=== PATIENT | female | born 1945 | race Caucasian/White ===

== ENCOUNTER 2016-09-17 16:45 | Observation (INO) | payer OTHER ==
[~2016-09-17] VITALS: Ht 165.1 cm; Wt 75.0 kg
[~2016-09-17 16:45] MED LIST: ALBUS PO; AMLO10 PO; ATOR20TA PO; BUPR-197 PO; IBUP-232 PO; LEVA500T PO; LEVO100T4 PO; LORA10TA PO; METO100T PO; MUCI600T PO; OMEP20TA PO; PRIN20TA2 PO; TRAZ50TA4 PO; ZITH500T PO
[2016-09-17 16:51] VITALS: BP 157/95; PULSE 85; RESP 16; TEMP 98.9; O2SAT 96
[2016-09-17] MEDS ORDERED: MORPHINE SULFATE 8 MG/ML INJ IV PUSH ONE ×2 (17:15→19:45)
[2016-09-17] MEDS ORDERED: ONDANSETRON HCL 4 MG/2 ML VIAL IV PUSH ONE (17:15)
--- NOTE | 2016-09-17 17:15 | PD ---
HPI Chief Complaint: GI Complaint Time Seen by Provider: 16:56 Travel History International Travel<30 days: No Contact w/Intl Traveler<30days: No Traveled to known affect area: No History of Present Illness HPI This 71-year-old female states that she been having abdominal pain and flank pain. I it has been going on since Friday. It was quite bad on Friday and then seemed better yesterday in the morning but then was worse in the afternoon. SHe thinks he has been having fever. She did not measure it. Her only past surgery was a she has a history of hypertension and is on medication she also has high cholesterol. She says the pulsating type of pain somewhat diffuse. She has had not had an appetite. She has been urinating frequently PFSH Past Medical History Asthma: Yes Heart Rhythm Problems: No Cancer: Yes (SKIN) Cardiac Catheterization: No Cardiovascular Problems: No High Cholesterol: Yes Congestive Heart Failure: No Diabetes: No Diminished Hearing: No GERD: Yes Hypertension: Yes Myocardial Infarction: No Thyroid Disease: Yes PNEUMOCCOCAL Vaccine (Year): 2 ?: Not Menopausal: Yes Dilation and Curettage (D&C): Yes (mole) Tubal Ligation: Yes Past Surgical History Section: Yes (X 2 ) Coronary Artery Bypass Graft: No Social History Alcohol Use: Yes (SOCIAL) Tobacco Use: Yes (1 PPD) Substance Use: No Allergies-Medications (Allergen,Severity, Reaction): Coded Allergies: Codeine (Verified Allergy, Mild, 09/17/16) Reported Meds & Prescriptions Reported Meds & Active Scripts Active Reported Levothyroxine (Levothyroxine Sodium) 100 Mcg Tab 100 Mcg PO DAILY Lisinopril 20 Mg Tab 20 Mg PO HS Trazodone (Trazodone HCl) 50 Mg Tab 50 Mg PO HS PRN Metoprolol Tartrate 100 Mg Tab 100 Mg PO BID Wellbutrin Xl 24 HR (Bupropion HCl) 150 Mg Tab 150 Mg PO HS Amlodipine (Amlodipine Besylate) 5 Mg Tab 5 Mg PO HS Omeprazole 20 Mg Tab 20 Mg PO HS Atorvastatin (Atorvastatin Calcium) 20 Mg Tab 20 Mg PO HS Review of Systems General / Constitutional: Positive: Fever Eyes: No: Diploplia, Blurred Vision HENT: No: Headaches Cardiovascular: No: Chest Pain or Discomfort, Palpitations Respiratory: No: Cough Gastrointestinal: Positive: Nausea, Abdominal Pain Genitourinary: Positive: Frequency, Flank Pain Musculoskeletal: No: Myalgias, Arthralgias Skin: No Rash Physical Exam Narrative GENERAL: Well-developed female SKIN: Warm and dry. HEAD: Atraumatic. Normocephalic. EYES: Pupils equal and round. No scleral icterus. No injection or drainage. ENT: No nasal bleeding or discharge. Mucous membranes pink and moist. NECK: Trachea midline. No JVD. CARDIOVASCULAR: Regular rate and rhythm. No murmur appreciated. RESPIRATORY: No accessory muscle use. Clear to auscultation. Breath sounds equal bilaterally. GASTROINTESTINAL: Abdomen soft, non-tender, nondistended. Hepatic and splenic margins not palpable. MUSCULOSKELETAL: No obvious deformities. No clubbing. No cyanosis. No edema. NEUROLOGICAL: Awake and alert. No obvious cranial nerve deficits. Motor grossly within normal limits. Normal speech. PSYCHIATRIC: Appropriate mood and affect; insight and judgment normal. Data Data Last Documented VS Vital Signs Date Time Temp Pulse Resp B/P Pulse Ox O2 Delivery O2 Flow Rate FiO2 09/17/16 19:53 98.6 67 16 166/79 95 Room Air Orders Morphine Inj (Morphine Inj) (09/17/16 17:15) Complete Blood Count With Diff (09/17/16 17:11) Comprehensive Metabolic Panel (09/17/16 17:11) Lipase (09/17/16 17:11) Urinalysis - C+S If Indicated (09/17/16 17:11) Ct Abd/Pel W Iv Contrast(Rout) (09/17/16 17:11) Sodium Chlor 0.9% 1000 Ml Inj (Ns 1000 M (09/17/16 17:15) Ondansetron Inj (Zofran Inj) (09/17/16 17:15) Iohexol 350 Inj (Omnipaque 350 Inj) (09/17/16 19:06) Morphine Inj (Morphine Inj) (09/17/16 19:45) Admit Order (Ed Use Only) (09/17/16 20:00) Chest, Single Ap (09/17/16 ) Lactic Acid (09/17/16 19:59) ^ Other Nursing Orders (09/17/16 19:59) Creatine Kinase (Cpk) (09/17/16 19:59) Creatine Kinase (Cpk) (09/18/16 01:59) Creatine Kinase (Cpk) (09/18/16 07:59) Troponin I (09/17/16 19:59) Troponin I (09/18/16 01:59) Troponin I (09/18/16 07:59) Electrocardiogram (09/17/16 20:05) Electrocardiogram (09/18/16 02:05) Electrocardiogram (09/18/16 08:05) Labs Laboratory Tests Test 09/17/16 17:26 White Blood Count 12.4 TH/MM3 Red Blood Count 4.15 MIL/MM3 Hemoglobin 13.5 GM/DL Hematocrit 40.2 % Mean Corpuscular Volume 96.7 FL Mean Corpuscular Hemoglobin 32.5 PG Mean Corpuscular Hemoglobin 33.7 % Concent Red Cell Distribution Width 12.7 % Platelet Count 244 TH/MM3 Mean Platelet Volume 9.2 FL Neutrophils (%) (Auto) 72.6 % Lymphocytes (%) (Auto) 17.3 % Monocytes (%) (Auto) 8.2 % Eosinophils (%) (Auto) 1.3 % Basophils (%) (Auto) 0.6 % Neutrophils # (Auto) 9.0 TH/MM3 Lymphocytes # (Auto) 2.1 TH/MM3 Monocytes # (Auto) 1.0 TH/MM3 Eosinophils # (Auto) 0.2 TH/MM3 Basophils # (Auto) 0.1 TH/MM3 CBC Comment DIFF FINAL Differential Comment Urine Color STRAW Urine Turbidity CLEAR Urine pH 6.0 Urine Specific [place] 1.008 Urine Protein NEG mg/dL Urine Glucose (UA) NEG mg/dL Urine Ketones NEG mg/dL Urine Occult Blood TRACE Urine Nitrite NEG Urine Bilirubin NEG Urine Leukocyte Esterase NEG Urine RBC 0-3 /hpf Urine WBC 0-2 /hpf Urine Squamous Epithelial 0-5 /hpf Cells Urine Calcium Oxalate Crystals RARE /hpf Microscopic Urinalysis Comment CULT NOT INDICATED Sodium Level 140 MEQ/L Potassium Level 3.4 MEQ/L Chloride Level 105 MEQ/L Carbon Dioxide Level 27.5 MEQ/L Anion Gap 8 MEQ/L Blood Urea Nitrogen 13 MG/DL Creatinine 0.94 MG/DL Estimat Glomerular Filtration 59 ML/MIN Rate Random Glucose 90 MG/DL Calcium Level 9.1 MG/DL Total Bilirubin 0.5 MG/DL Aspartate Amino Transf 14 U/L (AST/SGOT) Alanine Aminotransferase 22 U/L (ALT/SGPT) Alkaline Phosphatase 117 U/L Total Protein 7.9 GM/DL Albumin 3.5 GM/DL Lipase 95 U/L MDM Medical Decision Making Medical Screen Exam Complete: Yes Emergency Medical Condition: Yes Medical Record Reviewed: Yes Differential Diagnosis Differential includes gastroenteritis, diverticulitis, UTI Narrative Course Patient was given IV fluids and initial dose of [address] scan with contrast shows no acute abnormality. Small hepatic and right renal cysts. Her white count is elevated at 12.4. Patient to get an initial relief from the medication but on reevaluation at 7:30 she reports that the pain is recurring. It is fairly diffuse across the abdomen. Repeat examination of the abdomen shows it to be soft without guarding. Patient is having ongoing pain. CT scan has not revealed an etiology of the pain. She'll be admitted for further evaluation Diagnosis Primary Impression: Abdominal pain Admitting Information Admitting Physician Requests: Observation Micah Martinez MD Sep 17, 2016 17:15
[2016-09-17] MEDS ORDERED: OMEP20TA PO ×2 (17:23→17:26)
[2016-09-17] MEDS ORDERED: ATOR20TA15 PO (17:23)
[2016-09-17] MEDS ORDERED: BUPR150XL PO (17:26)
[2016-09-17] MEDS ORDERED: LISI-515 PO (17:26)
[2016-09-17] MEDS ORDERED: AMLO5TAB2 PO (17:26)
[2016-09-17] MEDS ORDERED: METO100T PO (17:26)
[2016-09-17] MEDS ORDERED: LEVO100T5 PO (17:26)
[2016-09-17] MEDS ORDERED: TRAZ50TA12 PO (17:26)
[2016-09-17 17:34] LABS: BLOOD, URINE TRACE (NEG); GLUCOSE,URINE NEG (NEG); KETONE, URINE NEG (NEG); NITRITE,URINE NEG (NEG)
[2016-09-17] MEDS: SODIUM CHLOR 0.9% 1000 ML INJ 1,000 ML IV SCH (17:46)
[2016-09-17 17:49] LABS: RBC, URINE 0-3 /hpf (0-3); SQUAMOUS EPITHELIAL CELL URINE 0-5 /hpf (0-5); URINE COLOR STRAW (YELLW/STRAW); WBC, URINE 0-2 /hpf (0-5)
[2016-09-17 17:51] LABS: BASOPHIL # 0.1 TH/MM3 (0-0.2); BASOPHIL % 0.6 % (0.0-2.0); CALCIUM OXALATE CRYSTALS,URINE RARE /hpf; COMMENT (UR) CULT NOT INDICATED; CULTURE IF INDICATED CULT NOT INDICATED; EOSINOPHIL # 0.2 TH/MM3 (0-0.4); EOSINOPHIL % 1.3 % (0.0-4.0); HEMATOCRIT 40.2 % (35.0-46.0); LYMPH % 17.3 % (9.0-44.0); LYMPHOCYTE # 2.1 TH/MM3 (1.0-4.8); MEAN CELL VOLUME 96.7 FL (80.0-100.0); MEAN CORPUSCULAR HEMOGLOBIN 32.5 PG (27.0-34.0); MEAN CORPUSCULAR HGB CONC 33.7 % (32.0-36.0); MONO % 8.2 % (0.0-8.0); NEUT % 72.6 % (16.0-70.0); PLATELET COUNT 244 TH/MM3 (150-450); RED BLOOD COUNT 4.15 MIL/MM3 (4.00-5.30); RED CELL DISTRIBUTION WIDTH 12.7 % (11.6-17.2); WHITE BLOOD COUNT 12.4 TH/MM3 (4.0-11.0)
[2016-09-17 17:54] LABS: HEMO FLAGS DIFF FINAL
[2016-09-17 18:22] VITALS: BP 163/79; PULSE 71; RESP 16; O2SAT 95
[2016-09-17 18:22] LABS: CHLORIDE 105 MEQ/L (98-107); POTASSIUM 3.4 MEQ/L (3.5-5.1); SODIUM (NA) 140 MEQ/L (136-145)
[2016-09-17 18:26] LABS: ANION GAP 8 MEQ/L (5-15); BICARBONATE 27.5 MEQ/L (21.0-32.0); BLOOD UREA NITROGEN 13 MG/DL (7-18)
[2016-09-17 18:29] LABS: ALT (GPT) 22 U/L (10-53); AST (GOT) 14 U/L (15-37); GLOMERULAR FILTRATION RATE 59 ML/MIN (>89)
[2016-09-17 18:31] LABS: TOTAL BILIRUBIN ADULT 0.5 MG/DL (0.2-1.0)
[2016-09-17 18:32] LABS: ALKALINE PHOSPHATASE 117 U/L (45-117)
[2016-09-17] MEDS ORDERED: IOHEXOL 350 MG/ML 10 ML VIAL (for RAD DIAG) IV ONE (19:06)
--- NOTE | 2016-09-17 19:21 | RADHPO ---
EXAM DATE/TIME: 09/17/2016 18:51 [facility] COMPARISON: No previous studies available for comparison. INDICATIONS : Bilateral lower abdominal pain for three days. IV CONTRAST: 75 cc Omnipaque 350 (iohexol) IV ORAL CONTRAST: No oral contrast ingested. RADIATION DOSE: 13.42 CTDIvol (mGy) MEDICAL HISTORY : Gastroesophageal reflux disease. Hypertension. SURGICAL HISTORY : Tubal ligation. section. ENCOUNTER: Initial ACUITY: 3 days PAIN SCALE: 8/10 LOCATION: Bilateral lower quadrant TECHNIQUE: Volumetric scanning of the abdomen and pelvis was performed. Using automated exposure control and ad justment of the mA and/or kV according to patient size, radiation dose was kept as low as reasonably achievable to obtain optimal diagnostic quality images. FINDINGS: LOWER LUNGS: Bibasilar atelectasis. The heart is at the upper limits of normal in terms of size. LIVER: Homogeneous density without lesion. A 1.6 cm cyst is seen involving segment 4. There is no dilation o f the biliary tree. No calcified gallstones. SPLEEN: Normal size without lesion. PANCREAS: Within normal limits. KIDNEYS: Normal in size and shape. There is no mass, stone or hydronephrosis. A 1 cm simple cyst is seen invo lving the upper pole right kidney. ADRENAL GLANDS: Within normal limits. VASCULAR: There is no aortic aneurysm. BOWEL/MESENTERY: The stomach, small bowel, and colon demonstrate no acute abnormality. There is no free intraperitone al air or fluid. ABDOMINAL WALL: Within normal limits. RETROPERITONEUM: There is no lymphadenopathy. BLADDER: No wall thickening or mass. REPRODUCTIVE: Within normal limits. INGUINAL: There is no lymphadenopathy or hernia. MUSCULOSKELETAL: Within normal limits for patient age. CONCLUSION: 1. No acute abnormality. 2. Small hepatic and right renal cysts. Wojciech He Jr., MD on September 17, 2016 at 19:15 Board Certified Radiologist. This report was verified electronically.
[2016-09-17 19:53] VITALS: BP 166/79; PULSE 67; RESP 16; TEMP 98.6; O2SAT 95
[2016-09-17] MEDS ORDERED: ONDANSETRON HCL 4 MG/2 ML VIAL IVP PRN (20:15)
[2016-09-17] MEDS ORDERED: SODIUM CHLORIDE 0.9% FLUSH 5 ML FLUSH FLUSH PRN (20:15)
[2016-09-17] MEDS ORDERED: PANTOPRAZOLE SOD 40 MG DELAYED RELEASE TAB PO ONE (20:15)
[2016-09-17] MEDS ORDERED: NALOXONE HCL 0.4 MG/ML AMP IV PRN (20:15)
--- NOTE | 2016-09-17 20:26 | RADHPO ---
EXAM DATE/TIME: 09/17/2016 20:06 [facility] COMPARISON: No previous studies available for comparison. INDICATIONS : Shortness of breath and chest pain. MEDICAL HISTORY : Gastroesophageal reflux disease. Hypertension. Pneumonia. SURGICAL HISTORY : None. ENCOUNTER: Initial ACUITY: 1 day PAIN SCORE: 8/10 LOCATION: Bilateral chest FINDINGS: Single portable frontal view the chest shows a vague parenchymal density within the infrahilar region on the right. Left lung is clear. No effusions. Heart is normal in size. Bony structures are unremar kable. CONCLUSION: Right infrahilar infiltrate. Wojciech He Jr., MD on September 17, 2016 at 20:24 Board Certified Radiologist. This report was verified electronically.
[2016-09-17] MEDS: SODIUM CHLORIDE 0.9% FLUSH 5 ML FLUSH FLUSH SCH (20:52)
[2016-09-17 21:35] LABS: CREATINE KINASE 41 U/L (26-192)
[2016-09-17] MEDS ORDERED: HYDROmorphone HCL PF 1 MG/ML VIAL IV PUSH PRN (23:00)
[2016-09-17] MEDS ORDERED: POTASSIUM CHLORIDE 25 MEQ EFFERVESCENT TAB PO ONE (23:00)
[2016-09-17 23:09] VITALS: BP 148/74; PULSE 70; RESP 18; O2SAT 93
[2016-09-17 23:30] VITALS: PULSE 69; RESP 16; O2SAT 90
[2016-09-18 00:23] VITALS: PULSE 64; RESP 16; O2SAT 96
[2016-09-18 02:05] VITALS: BP 137/63; PULSE 62; RESP 16; O2SAT 96
[2016-09-18 03:19] LABS: CREATINE KINASE 41 U/L (26-192)
[2016-09-18] MEDS: SODIUM CHLOR 0.9% 1000 ML INJ 1,000 ML IV SCH ×2 (03:20→13:15)
--- NOTE | 2016-09-18 05:39 | EKG ---
Date Performed: 09/17/2016 Time Performed: 20:42:44 PTAGE: 71 years EKG: BASELINE ARTIFACT PRESENT. Sinus rhythm RSR prime in V2 Normal ECG COMPARED TO PRIOR ELECTROCARDIOGRAM, Both EKGs have significant artifact although I see no definite changes. PREVIOUS TRACING : 09/17/2016 20.40 DOCTOR: Nigel Long Interpretating Date/Time 09/18/2016 05:37:34
[2016-09-18 06:05] VITALS: BP 160/69; PULSE 68; RESP 16; TEMP 98.4; O2SAT 93
[2016-09-18 06:25] LABS: AUTOMATED NEUTROPHIL # 5.4 TH/MM3 (1.8-7.7); BASOPHIL % 0.6 % (0.0-2.0); EOSINOPHIL # 0.2 TH/MM3 (0-0.4); EOSINOPHIL % 2.2 % (0.0-4.0); HEMATOCRIT 36.2 % (35.0-46.0); HEMO FLAGS DIFF FINAL; LYMPH % 20.2 % (9.0-44.0); LYMPHOCYTE # 1.6 TH/MM3 (1.0-4.8); MEAN CELL VOLUME 96.9 FL (80.0-100.0); MEAN CORPUSCULAR HEMOGLOBIN 32.5 PG (27.0-34.0); MEAN CORPUSCULAR HGB CONC 33.5 % (32.0-36.0); MONO % 9.9 % (0.0-8.0); NEUT % 67.1 % (16.0-70.0); PLATELET COUNT 216 TH/MM3 (150-450); RED BLOOD COUNT 3.73 MIL/MM3 (4.00-5.30); RED CELL DISTRIBUTION WIDTH 12.9 % (11.6-17.2)
[2016-09-18 07:01] VITALS: BP 151/60; PULSE 65; RESP 16; TEMP 98.7; O2SAT 96
[2016-09-18 07:07] LABS: CHLORIDE 107 MEQ/L (98-107); POTASSIUM 3.5 MEQ/L (3.5-5.1); SODIUM (NA) 143 MEQ/L (136-145)
[2016-09-18 07:18] LABS: ALKALINE PHOSPHATASE 103 U/L (45-117); ALT (GPT) 17 U/L (10-53); ANION GAP 8 MEQ/L (5-15); AST (GOT) 12 U/L (15-37); BICARBONATE 28.5 MEQ/L (21.0-32.0); BLOOD UREA NITROGEN 10 MG/DL (7-18); GLOMERULAR FILTRATION RATE 62 ML/MIN (>89); TOTAL BILIRUBIN ADULT 0.8 MG/DL (0.2-1.0)
[2016-09-18 08:10] LABS: CREATINE KINASE 34 U/L (26-192)
[2016-09-18] MEDS ORDERED: PANTOPRAZOLE SOD 40 MG DELAYED RELEASE TAB PO SCH (09:00)
[2016-09-18] MEDS: SODIUM CHLORIDE 0.9% FLUSH 5 ML FLUSH FLUSH SCH (09:00)
[2016-09-18] MEDS ORDERED: LEVOTHYROXINE SODIUM 100 MCG TAB PO SCH (11:00)
[2016-09-18] MEDS ORDERED: METOPROLOL TARTRATE 100 MG TAB PO SCH (11:00)
[2016-09-18] MEDS ORDERED: LEVOFLOXACIN 750 MG TAB PO SCH (11:00)
[2016-09-18 12:00] VITALS: BP 143/75; PULSE 66; RESP 18; TEMP 97.8; O2SAT 94
--- NOTE | 2016-09-18 12:59 | HHI.HP ---
[facility] Primary Care Physician Leroy Abraham MD Admission Diagnosis ABDOMINAL PAIN Diagnoses: (1) Pneumonia Diagnosis: Principal (2) Leukocytosis Diagnosis: Principal (3) Muscle strain Diagnosis: Principal Chief Complaint: back and side pain Travel History International Travel<30 Days: No Contact w/Intl Traveler <30 Da: No Traveled to Known Affected Are: No History of Present Illness 71-year-old female with history of hyperlipidemia, hypertension, thyroid disease, GERD, skin cancer, and possible asthma is admitted for abdominal pain, but was also found have pneumonia. The patient states she started to have pain in her back on Friday. She states it then spread to both sides and states it felt like a "muscle spasm". She states Friday she woke up and there was no pain but then it started hurting again. Admits to pain with twisting. Patient states the pain is resolved currently stating it stopped through the night with pain medication. She states she had been painting on Friday. The patient admits to having had subjective fevers and chills. She states she had some nausea Friday morning and an episode of emesis. Denies any cough or shortness of breath. Last bowel movement was Friday morning. Denies any diarrhea or constipation. Denies any blood in the stool. No other symptoms reported. Review of Systems Other ROS 10 negative unless indicated in history of present illness. Past Family Social History Past Medical History Skin cancer Possible asthma Hyperlipidemia Hypertension Thyroid disease GERD Anxiety Past Surgical History 2 Reported Medications Levothyroxine (Levothyroxine Sodium) 100 Mcg Tab 100 Mcg PO DAILY Lisinopril 20 Mg Tab 20 Mg PO HS Trazodone (Trazodone HCl) 50 Mg Tab 50 Mg PO HS PRN Metoprolol Tartrate 100 Mg Tab 100 Mg PO BID Wellbutrin Xl 24 HR (Bupropion HCl) 150 Mg Tab 150 Mg PO HS Amlodipine (Amlodipine Besylate) 5 Mg Tab 5 Mg PO HS Omeprazole 20 Mg Tab 20 Mg PO HS Atorvastatin (Atorvastatin Calcium) 20 Mg Tab 20 Mg PO HS Allergies: Coded Allergies: Codeine (Verified Allergy, Mild, 09/17/16) Family History Father: Basal cell carcinoma Social History Patient smokes one pack per day of cigarettes, she has been smoking most of her adult life. Physical Exam Vital Signs Vital Signs Date Time Temp Pulse Resp B/P Pulse Ox O2 Delivery O2 Flow Rate FiO2 09/18/16 12:00 97.8 66 18 143/75 94 09/18/16 07:01 98.7 65 16 151/60 96 Room Air 09/18/16 06:05 98.4 68 16 160/69 93 Room Air 09/18/16 03:15 Nasal Cannula 09/18/16 02:05 62 16 137/63 96 Nasal Cannula 2 09/18/16 00:23 64 16 96 Nasal Cannula 2 09/17/16 23:40 Nasal Cannula 2 09/17/16 23:30 69 16 90 Room Air 09/17/16 23:09 70 18 148/74 93 Room Air 09/17/16 19:53 98.6 67 16 166/79 95 Room Air 09/17/16 18:22 71 16 163/79 95 Room Air 09/17/16 18:00 16 09/17/16 17:27 18 09/17/16 16:51 98.9 85 16 157/95 96 Physical Exam GENERAL: This is a well-nourished, well-developed patient, in no apparent distress sitting on side of the bed. SKIN: No rashes, ecchymoses or lesions. Cool and dry. HEAD: Atraumatic. Normocephalic. EYES: No scleral icterus. No injection or drainage. NECK: Trachea midline. CARDIOVASCULAR: Regular rate and rhythm. RESPIRATORY: Clear to auscultation. Breath sounds equal bilaterally. No wheezes , rales, or rhonchi. GASTROINTESTINAL: Abdomen soft, non-tender, nondistended. MUSCULOSKELETAL: No lower extremity edema bilaterally. BACK: No tenderness over mid to low back. NEUROLOGICAL: Awake and alert. Motor grossly within normal limits. Normal speech. Laboratory Laboratory Tests Test 09/17/16 09/17/16 09/17/16 09/18/16 17:26 20:10 20:25 02:05 White Blood Count 12.4 Red Blood Count 4.15 Hemoglobin 13.5 Hematocrit 40.2 Mean Corpuscular Volume 96.7 Mean Corpuscular Hemoglobin 32.5 Mean Corpuscular Hemoglobin 33.7 Concent Red Cell Distribution Width 12.7 Platelet Count 244 Mean Platelet Volume 9.2 Neutrophils (%) (Auto) 72.6 Lymphocytes (%) (Auto) 17.3 Monocytes (%) (Auto) 8.2 Eosinophils (%) (Auto) 1.3 Basophils (%) (Auto) 0.6 Neutrophils # (Auto) 9.0 Lymphocytes # (Auto) 2.1 Monocytes # (Auto) 1.0 Eosinophils # (Auto) 0.2 Basophils # (Auto) 0.1 CBC Comment DIFF FINAL Differential Comment Urine Color STRAW Urine Turbidity CLEAR Urine pH 6.0 Urine Specific [place] 1.008 Urine Protein NEG Urine Glucose (UA) NEG Urine Ketones NEG Urine Occult Blood TRACE Urine Nitrite NEG Urine Bilirubin NEG Urine Leukocyte Esterase NEG Urine RBC 0-3 Urine WBC 0-2 Urine Squamous Epithelial 0-5 Cells Urine Calcium Oxalate Crystals RARE Microscopic Urinalysis Comment CULT NOT INDICATED Sodium Level 140 Potassium Level 3.4 Chloride Level 105 Carbon Dioxide Level 27.5 Anion Gap 8 Blood Urea Nitrogen 13 Creatinine 0.94 Estimat Glomerular Filtration 59 Rate Random Glucose 90 Calcium Level 9.1 Total Bilirubin 0.5 Aspartate Amino Transf 14 (AST/SGOT) Alanine Aminotransferase 22 (ALT/SGPT) Alkaline Phosphatase 117 Total Protein 7.9 Albumin 3.5 Lipase 95 Total Creatine Kinase 41 41 Troponin I LESS THAN 0.02 LESS THAN 0.02 Lactic Acid Level 1.3 Test 09/18/16 09/18/16 06:10 07:40 White Blood Count 8.0 Red Blood Count 3.73 Hemoglobin 12.1 Hematocrit 36.2 Mean Corpuscular Volume 96.9 Mean Corpuscular Hemoglobin 32.5 Mean Corpuscular Hemoglobin 33.5 Concent Red Cell Distribution Width 12.9 Platelet Count 216 Mean Platelet Volume 8.9 Neutrophils (%) (Auto) 67.1 Lymphocytes (%) (Auto) 20.2 Monocytes (%) (Auto) 9.9 Eosinophils (%) (Auto) 2.2 Basophils (%) (Auto) 0.6 Neutrophils # (Auto) 5.4 Lymphocytes # (Auto) 1.6 Monocytes # (Auto) 0.8 Eosinophils # (Auto) 0.2 Basophils # (Auto) 0.0 CBC Comment DIFF FINAL Differential Comment Sodium Level 143 Potassium Level 3.5 Chloride Level 107 Carbon Dioxide Level 28.5 Anion Gap 8 Blood Urea Nitrogen 10 Creatinine 0.90 Estimat Glomerular Filtration 62 Rate Random Glucose 88 Calcium Level 8.3 Total Bilirubin 0.8 Aspartate Amino Transf 12 (AST/SGOT) Alanine Aminotransferase 17 (ALT/SGPT) Alkaline Phosphatase 103 Total Protein 6.9 Albumin 2.9 Lipase 71 Total Creatine Kinase 34 Troponin I LESS THAN 0.02 Result Diagram: 09/18/16 0610 09/18/16 0610 Imaging Last Impressions Abdomen/Pelvis CT 09/17/16 1711 Signed Impressions: Service Date/Time: Saturday, September 17, 2016 18:51 - CONCLUSION: 1. No acute abnormality. 2. Small hepatic and right renal cysts. Wojciech He Jr., MD Chest X-Ray 09/17/16 0000 Signed Impressions: Service Date/Time: Saturday, September 17, 2016 20:06 - CONCLUSION: Right infrahilar infiltrate. Wojciech He Jr., MD Assessment and Plan Assessment and Plan 71-year-old female with: Muscle strain back: Patient was painting Friday and started to experience pain in the back radiating to the lateral aspects of the abdomen. Abdominal CT was performed in ED with no acute abnormalities. Normal LFTs and lipase. UA negative for infection. Patient had pain with trunk rotation during physical therapy. -Pain resolved after pain medication last night -Ice/heat as needed -Avoid lifting/bending Pneumonia: Patient admits to subjective fevers and chills at home as well as an episode of nausea and emesis but denies any cough or shortness of breath. Chest x-ray personally interpreted with possible right infrahilar infiltrate. WBC elevated at 12.4 but wnl this morning. -Patient started on Levaquin 750 mg by mouth HTN: Blood pressure elevated, but patient did not receive her nighttime meds. -Resume home medication DVT prevention: SCDs. Written by Trini Rockwell PA-C acting as scribe for Dr. Lipscomb on 09/18/16 at 1155. The documentation accurately reflects the work and decisions performed face-to- face by me Dr. Lipscomb on 09/18/16 at 1155. Discharge disposition: Home in stable condition Diet: Heart healthy Activity: Regular. Avoid lifting/bending Medications: Levaquin 750 mg by mouth total 7 days. Patient advised against taking prn trazodone with Levaquin due to risk of QT prolongation. Follow-up: PCP Leroy Abraham 2-3 days. Discussed Condition With patient Trini Rockwell Sep 18, 2016 12:59
[2016-09-18] MEDS ORDERED: LEVA750T PO (13:07)
--- NOTE | 2016-09-18 13:09 | HHI.DCPOC ---
Discharge Care Plan Diagnosis: (1) Pneumonia (2) Leukocytosis (3) Muscle strain Goals to Promote Your Health * To prevent worsening of your condition and complications * To maintain your health at the optimal level Directions to Meet Your Goals Take your medications as prescribed Follow your dietary instruction Follow activity as directed Keep your appointments as scheduled Take your immunizations and boosters as scheduled If your symptoms worsen call your PCP, if no PCP go to Urgent Care Center or Emergency Room Smoking is Dangerous to Your Health. Avoid second hand smoke Call the 24-hour hour crisis hotline for domestic abuse at Trini Rockwell Sep 18, 2016 13:09
--- NOTE | 2016-09-18 15:01 | EKG ---
Date Performed: 09/18/2016 Time Performed: 07:41:26 PTAGE: 71 years EKG: Sinus rhythm Normal ECG NO SIGNIFICANT CHANGE FROM PRIOR ELECTROCARDIOGRAM. PREVIOUS TRACING : 09/18/2016 02.11 DOCTOR: Nigel Long Interpretating Date/Time 09/18/2016 15:00:23
--- NOTE | 2016-09-18 15:02 | EKG ---
Date Performed: 09/18/2016 Time Performed: 02:11:06 PTAGE: 71 years EKG: Sinus rhythm Normal ECG NO SIGNIFICANT CHANGE FROM PRIOR ELECTROCARDIOGRAM. PREVIOUS TRACING : 09/17/2016 20.42 DOCTOR: Nigel Long Interpretating Date/Time 09/18/2016 15:00:41
== END 2016-09-18 13:51 | disposition home or self-care (01) ==
LOC: PHED 16:45 → PHEDA 20:01 → PHEDH 09-18 00:04 → PH3B 09-18 08:00
PROVIDERS: ADMIT Family Medicine; ATTEND Family Medicine
DX: J18.9 Pneumonia, unspecified organism (principal); N28.1 Cyst of kidney, acquired; R11.2 Nausea with vomiting, unspecified; F17.210 Nicotine dependence, cigarettes, uncomplicated; I10 Essential (primary) hypertension; K21.9 Gastro-esophageal reflux disease without esophagitis; E78.00 Pure hypercholesterolemia, unspecified; E78.5 Hyperlipidemia, unspecified; E07.9 Disorder of thyroid, unspecified; F41.9 Anxiety disorder, unspecified; Z85.828 Personal history of other malignant neoplasm of skin
CPT/HCPCS: 71010; 74177; 80053; 81001; 82550; 83605; 83690; 84484; 85025; 93005; 96361; 96374; 96375; 96376; 97162; 99285; G0378; G8987; G8988; J1170; J2270; J2405; J7030; Q9967

== ENCOUNTER 2016-12-15 10:35 | Emergency (ER) | payer OTHER ==
[~2016-12-15] VITALS: Ht 165.1 cm; Wt 71.0 kg
[~2016-12-15 10:35] MED LIST changes: -ALBUS PO; -AMLO10 PO; +AMLO5TAB2 PO; -ATOR20TA PO; +ATOR20TA15 PO; -BUPR-197 PO; +BUPR150XL PO; -IBUP-232 PO; -LEVA500T PO; +LEVA750T PO; -LEVO100T4 PO; +LEVO100T5 PO; +LISI-515 PO; -LORA10TA PO; -MUCI600T PO; -PRIN20TA2 PO; -TRAZ50TA4 PO; -ZITH500T PO
[2016-12-15 10:40] VITALS: BP 89/53; PULSE 64; RESP 16; TEMP 95
[2016-12-15 10:57] VITALS: O2SAT 95
[2016-12-15] MEDS ORDERED: TRAZ50TA12 PO (11:02)
[2016-12-15] MEDS ORDERED: IPRA0.02 NEB (11:02)
[2016-12-15] MEDS ORDERED: FLUO10TA PO (11:02)
[2016-12-15 11:04] VITALS: BP 98/52; PULSE 61; RESP 16; TEMP 97.4; O2SAT 95
[2016-12-15 11:05] LABS: AUTOMATED NEUTROPHIL # 5.2 TH/MM3 (1.8-7.7); BASOPHIL % 0.5 % (0.0-2.0); EOSINOPHIL # 0.1 TH/MM3 (0-0.4); EOSINOPHIL % 1.1 % (0.0-4.0); HEMATOCRIT 39.6 % (35.0-46.0); HEMO FLAGS DIFF FINAL; LYMPH % 18.3 % (9.0-44.0); LYMPHOCYTE # 1.4 TH/MM3 (1.0-4.8); MEAN CELL VOLUME 94.7 FL (80.0-100.0); MEAN CORPUSCULAR HEMOGLOBIN 32.6 PG (27.0-34.0); MEAN CORPUSCULAR HGB CONC 34.4 % (32.0-36.0); MONO % 13.7 % (0.0-8.0); NEUT % 66.4 % (16.0-70.0); PLATELET COUNT 221 TH/MM3 (150-450); RED BLOOD COUNT 4.18 MIL/MM3 (4.00-5.30); RED CELL DISTRIBUTION WIDTH 12.7 % (11.6-17.2); WHITE BLOOD COUNT 7.8 TH/MM3 (4.0-11.0)
[2016-12-15] MEDS ORDERED: SODIUM CHLOR 0.9% 1000 ML INJ 1,000 ML IV ONE (11:15)
[2016-12-15] MEDS ORDERED: ONDANSETRON HCL 4 MG/2 ML VIAL IV PUSH ONE (11:15)
--- NOTE | 2016-12-15 11:16 | PD ---
HPI Chief Complaint: GI Complaint Time Seen by Provider: 11:12 Travel History International Travel<30 days: No Contact w/Intl Traveler<30days: No Traveled to known affect area: No History of Present Illness HPI 71-year-old female with history of multiple medical issues, presents to the ER today for 3 days history of nausea and multiple episodes of watery diarrhea. She denies any blood in the stools, black stools, fevers, vomiting, or any other symptoms. She had tried to take Imodium without significant improvement. She also describes intermittent crampy abdominal pains which can be up to an 8 out of 10. Her daughter states that the symptoms started after everyone ate crab salad. Patient's daughter states she also had diarrhea for about a day. Her symptoms are now improved. Patient comes to the ER today because she states she is feeling more generally weak and fatigued. She denies any cough, body aches, cold symptoms, or other symptoms. She denies any recent antibiotic use or travel. Modifying Factors: None Associated Signs & Symptoms: Diarrhea, general weakness, nausea Risk Factors: Sick contact PFSH Past Medical History Arthritis: Yes Asthma: Yes Anxiety: Yes Depression: Yes Heart Rhythm Problems: No Cancer: Yes (SKIN) Cardiac Catheterization: No Cardiovascular Problems: Yes (/htn) High Cholesterol: Yes Congestive Heart Failure: No Diabetes: No Diminished Hearing: No Endocrine: Yes GERD: Yes Genitourinary: No Hypertension: Yes Musculoskeletal: Yes Neurologic: No Psychiatric: Yes Reproductive: No Respiratory: Yes Migraines: Yes Myocardial Infarction: No Sickle Cell Disease: No Thyroid Disease: Yes Tetanus Vaccination: > 5 Years Influenza Vaccination: Yes PNEUMOCCOCAL Vaccine (Year): 2 Menopausal: Yes Dilation and Curettage (D&C): Yes (mole) Tubal Ligation: Yes Past Surgical History Section: Yes (X 2 ) Coronary Artery Bypass Graft: No Gynecologic Surgery: Yes (C SECTION) Other Surgery: Yes Social History Alcohol Use: Yes (SOCIAL) Tobacco Use: Yes (1 PPD) Substance Use: No Allergies-Medications (Allergen,Severity, Reaction): Coded Allergies: Codeine (Verified Allergy, Mild, 12/15/16) Reported Meds & Prescriptions Reported Meds & Active Scripts Active Potassium Chloride Microencaps 20 Meq Tab 20 Meq PO Q12HR Cipro (Ciprofloxacin HCl) 500 Mg Tab 500 Mg PO BID 7 Days Zofran Odt (Ondansetron Odt) 4 Mg Tab 4 Mg SL Q6HR PRN Reported Ipratropium Neb (Ipratropium Adams) 0.5 Mg/2.5 Ml Amp 0.5 Mg NEB Q2HR NEB PRN Fluoxetine (Fluoxetine HCl) 10 Mg Tab 10 Mg PO DAILY Trazodone (Trazodone HCl) 50 Mg Tab 50 Mg PO HS Levothyroxine (Levothyroxine Sodium) 100 Mcg Tab 100 Mcg PO DAILY Lisinopril 20 Mg Tab 20 Mg PO HS Metoprolol Tartrate 100 Mg Tab 100 Mg PO BID Amlodipine (Amlodipine Besylate) 5 Mg Tab 5 Mg PO HS Omeprazole 20 Mg Tab 20 Mg PO HS Atorvastatin (Atorvastatin Calcium) 20 Mg Tab 20 Mg PO HS Review of Systems Except as stated in HPI: all other systems reviewed are Neg Physical Exam Narrative GENERAL: [Well-developed elderly white female patient who appears in mild distress. Awake and oriented 3. SKIN: Focused skin assessment warm/dry. HEAD: Atraumatic. Normocephalic. EYES: Pupils equal and round. No scleral icterus. No injection or drainage. ENT: No nasal bleeding or discharge. Mucous membranes pink and dry. NECK: Trachea midline. No JVD. CARDIOVASCULAR: Regular rate and rhythm. No murmur appreciated. RESPIRATORY: No accessory muscle use. Clear to auscultation. Breath sounds equal bilaterally. GASTROINTESTINAL: Abdomen soft, non-tender, nondistended. Hepatic and splenic margins not palpable. MUSCULOSKELETAL: No obvious deformities. No clubbing. No cyanosis. No edema. NEUROLOGICAL: Awake and alert. No obvious cranial nerve deficits. Motor grossly within normal limits. Normal speech. PSYCHIATRIC: Appropriate mood and affect; insight and judgment normal. Data Data Last Documented VS Vital Signs Date Time Temp Pulse Resp B/P Pulse Ox O2 Delivery O2 Flow Rate FiO2 12/15/16 11:50 54 14 105/51 97 Nasal Cannula 2 12/15/16 11:04 97.4 Orders Complete Blood Count With Diff (12/15/16 10:55) Comprehensive Metabolic Panel (12/15/16 10:55) Urinalysis - C+S If Indicated (12/15/16 10:55) Iv Access Insert/Monitor (12/15/16 10:55) Oxygen Administration (12/15/16 10:55) Oximetry (12/15/16 10:55) Lipase (12/15/16 10:55) Electrocardiogram (12/15/16 ) Sodium Chlor 0.9% 1000 Ml Inj (Ns 1000 M (12/15/16 11:15) Ondansetron Inj (Zofran Inj) (12/15/16 11:15) Potassium Chloride (Kcl) (12/15/16 11:45) Potassium Chlor 20 Meq Premix (Kcl 20 Me (12/15/16 11:45) Labs Laboratory Tests Test 12/15/16 12/15/16 11:00 12:15 White Blood Count 7.8 TH/MM3 Red Blood Count 4.18 MIL/MM3 Hemoglobin 13.6 GM/DL Hematocrit 39.6 % Mean Corpuscular Volume 94.7 FL Mean Corpuscular Hemoglobin 32.6 PG Mean Corpuscular Hemoglobin 34.4 % Concent Red Cell Distribution Width 12.7 % Platelet Count 221 TH/MM3 Mean Platelet Volume 8.9 FL Neutrophils (%) (Auto) 66.4 % Lymphocytes (%) (Auto) 18.3 % Monocytes (%) (Auto) 13.7 % Eosinophils (%) (Auto) 1.1 % Basophils (%) (Auto) 0.5 % Neutrophils # (Auto) 5.2 TH/MM3 Lymphocytes # (Auto) 1.4 TH/MM3 Monocytes # (Auto) 1.1 TH/MM3 Eosinophils # (Auto) 0.1 TH/MM3 Basophils # (Auto) 0.0 TH/MM3 CBC Comment DIFF FINAL Differential Comment Sodium Level 139 MEQ/L Potassium Level 2.6 MEQ/L Chloride Level 104 MEQ/L Carbon Dioxide Level 25.5 MEQ/L Anion Gap 10 MEQ/L Blood Urea Nitrogen 15 MG/DL Creatinine 0.98 MG/DL Estimat Glomerular Filtration 56 ML/MIN Rate Random Glucose 108 MG/DL Calcium Level 8.9 MG/DL Total Bilirubin 0.5 MG/DL Aspartate Amino Transf 18 U/L (AST/SGOT) Alanine Aminotransferase 23 U/L (ALT/SGPT) Alkaline Phosphatase 90 U/L Total Protein 7.4 GM/DL Albumin 3.1 GM/DL Lipase 174 U/L Urine Collection Type CLEAN CATCH Urine Color YELLOW Urine Turbidity CLEAR Urine pH 6.0 Urine Specific Fowler 1.008 Urine Protein NEG mg/dL Urine Glucose (UA) NEG mg/dL Urine Ketones NEG mg/dL Urine Occult Blood NEG Urine Nitrite NEG Urine Bilirubin NEG Urine Leukocyte Esterase NEG Urine WBC 0-2 /hpf Urine Squamous Epithelial 0-5 /hpf Cells Microscopic Urinalysis Comment CULT NOT INDICATED MDM Medical Decision Making Medical Screen Exam Complete: Yes Emergency Medical Condition: Yes Medical Record Reviewed: Yes Interpretation(s) Laboratory Tests Test 12/15/16 11:00 Monocytes (%) (Auto) 13.7 % (0.0-8.0) Monocytes # (Auto) 1.1 TH/MM3 (0-0.9) Potassium Level 2.6 MEQ/L (3.5-5.1) Estimat Glomerular Filtration 56 ML/MIN (>89) Rate Random Glucose 108 MG/DL (74-106) Albumin 3.1 GM/DL (3.4-5.0) Differential Diagnosis Diarrheagastroenteritis versus foodborne illness versus influenza versus pancreatitis versus dehydration versus electrolyte abnormalities Narrative Course Lab work returns showing significant hypokalemia. The rest of the electrolyte panel was unremarkable. White blood cell count was unremarkable. On exam, abdominal exam is fairly benign and I do not suspect an acute intra-abdominal process. Her blood pressure was initially low and IV fluids were given in the ER. Is suspect significant dehydration likely from food poisoning in this case. Patient's daughter also ate crab salad and became sick the next day. They state that the crab salad had sat in the cooler overnight. At this point, considering her electrolyte abnormality and mild hypotension, I have discussed observation admission for further IV fluids and potassium replacement therapy with the patient. However, both patient and daughter would prefer not to be admitted. I have talked to them regarding possibility of worsening in condition especially with inadequate by mouth intake of fluids and electrolytes as a risk for worsening in condition. They state understanding, but stated that they would prefer outpatient therapy at this point. My plan would be to release her with further by mouth potassium replacements, nausea medication, and continue by mouth hydration. Follow-up closely with primary care physician on Friday. Return for any worsening in symptoms as needed. The plan and the risks were discussed with patient and daughter and they stated understanding. Diagnosis Primary Impression: Dehydration Additional Impressions: Diarrhea of presumed infectious origin Hypokalemia Med/Other Pt SpecificInfo: Prescription(s) given Scripts Potassium Chloride Microencaps 20 Meq Tab20 Meq PO Q12HR #10 TAB Ref 0 Prov:Mateus Martinez MD 12/15/16 Ciprofloxacin (Cipro)500 Mg [id number] Mg PO BID 7 Days Ref 0 Prov:Mateus Martinez MD 12/15/16 Ondansetron Odt (Zofran Odt)4 Mg Tab4 Mg SL Q6HR PRN (Nausea/Vomiting) #7 TAB Ref 0 Prov:Mateus Martinez MD 12/15/16 Disposition: 01 DISCHARGE HOME Condition: Stable Mateus Martinez MD Dec 15, 2016 11:16
[2016-12-15 11:20] VITALS: BP 98/55; PULSE 59; RESP 16; O2SAT 97
[2016-12-15 11:34] LABS: ALKALINE PHOSPHATASE 90 U/L (45-117); ALT (GPT) 23 U/L (10-53); ANION GAP 10 MEQ/L (5-15); AST (GOT) 18 U/L (15-37); BICARBONATE 25.5 MEQ/L (21.0-32.0); BLOOD UREA NITROGEN 15 MG/DL (7-18); CHLORIDE 104 MEQ/L (98-107); GLOMERULAR FILTRATION RATE 56 ML/MIN (>89); SODIUM (NA) 139 MEQ/L (136-145); TOTAL BILIRUBIN ADULT 0.5 MG/DL (0.2-1.0)
[2016-12-15 11:36] LABS: POTASSIUM 2.6 MEQ/L (3.5-5.1)
[2016-12-15] MEDS ORDERED: POTASSIUM CHLORIDE 10 MEQ CONTROLLED RELEASE TAB PO ONE (11:45)
[2016-12-15] MEDS ORDERED: POTASSIUM CHLOR 20 MEQ PREMIX 100 ML IV ONE (11:45)
[2016-12-15 11:50] VITALS: BP 105/51; PULSE 54; RESP 14; O2SAT 97
[2016-12-15] MEDS ORDERED: POTA20TA5 PO (12:09)
[2016-12-15] MEDS ORDERED: CIPR-9 PO (12:09)
[2016-12-15] MEDS ORDERED: ZOFR4TAB3 SL (12:09)
[2016-12-15 12:31] LABS: BLOOD, URINE NEG (NEG); GLUCOSE,URINE NEG (NEG); KETONE, URINE NEG (NEG); NITRITE,URINE NEG (NEG)
[2016-12-15 12:40] LABS: METHOD OF COLLECTION CLEAN CATCH; URINE COLOR YELLOW (YELLW/STRAW)
[2016-12-15 12:41] LABS: COMMENT (UR) CULT NOT INDICATED; CULTURE IF INDICATED CULT NOT INDICATED; SQUAMOUS EPITHELIAL CELL URINE 0-5 /hpf (0-5); WBC, URINE 0-2 /hpf (0-5)
[2016-12-15 13:32] VITALS: BP 118/60; PULSE 57; RESP 14; O2SAT 95
--- NOTE | 2016-12-16 14:21 | EKG ---
Date Performed: 12/15/2016 Time Performed: 11:02:44 PTAGE: 71 years EKG: Sinus bradycardia Prolonged QT interval Extensive T wave changes are nonspecific Compared t o prior tracing no significant change Borderline ECG PREVIOUS TRACING : 09/18/2016 07.41 DOCTOR: Mikal Montilla Interpretating Date/Time 12/16/2016 14:20:28
== END 2016-12-15 14:18 | disposition home or self-care (01) ==
LOC: PHED 10:35
DX: E86.0 Dehydration (principal); R19.7 Diarrhea, unspecified; E87.6 Hypokalemia; R00.1 Bradycardia, unspecified; R53.1 Weakness; J45.909 Unspecified asthma, uncomplicated; I10 Essential (primary) hypertension; E78.00 Pure hypercholesterolemia, unspecified; F17.210 Nicotine dependence, cigarettes, uncomplicated
CPT/HCPCS: 80053; 81001; 83690; 85025; 93005; 96361; 96365; 96366; 96375; 99285; J2405; J3480; J7030